=== PATIENT | female | born 1960 | race Caucasian/White ===

== ENCOUNTER 2017-12-03 17:39 | Emergency (ER) | payer OTHER ==
[~2017-12-03] VITALS: Ht 170.2 cm; Wt 62.0 kg
[2017-12-03 17:54] VITALS: BP 118/59; PULSE 74; RESP 18; TEMP 98.4; O2SAT 100
--- NOTE | 2017-12-03 18:09 | PD ---
HPI Chief Complaint: Bite or Sting Time Seen by Provider: 18:01 Travel History International Travel<30 days: No Contact w/Intl Traveler<30days: No Traveled to known affect area: No History of Present Illness HPI Patient comes emergency department the advice of Dr. Lindquist for IV antibiotics. Patient reports she has been taking Motrin, using Benadryl, and hydrocortisone cream with minimal improvement of symptoms. Patient significant other reports that he contacted Dr. Lyons who told him to stop using hydrocortisone and that she will need antibiotics. Patient's significant other reports that he then contacted , who told the patient coming to the ER for IV antibiotics and to call him upon arrival. Patient states that symptoms began yesterday when she went to run her fingers through her hair and felt she got bit by a bug. Patient complaining of burning sensation around left index finger radiates into her left middle finger proximal phalanx. Pain is worse with palpation certain movement. Patient is right-hand dominant. Patient reports tetanus shot is up-to-date PFS Past Medical History Medical History: Denies Significant Hx ?: Not Past Surgical History Hysterectomy: Yes Social History Alcohol Use: No Tobacco Use: No Substance Use: No Allergies-Medications (Allergen,Severity, Reaction): Coded Allergies: Sulfa (Sulfonamide Antibiotics) (Unverified Allergy, Intermediate, Rash and Itching, 12/03/17) penicillin G (Unverified Allergy, Intermediate, Rash and Itching, 12/03/17) Reported Meds & Prescriptions Reported Meds & Active Scripts Active Clindamycin (Clindamycin HCl) 300 Mg Cap 300 Mg PO Q6H 10 Days Review of Systems Except as stated in HPI: all other systems reviewed are Neg Physical Exam Narrative GENERAL: Well-developed, well nourished, in no acute distress, and non-ill appearing. SKIN: Mild erythematous soft tissue swelling noted over the proximal phalanx of the left index finger. Erythematous extending with its distal phalanx. There is no fluctuation, induration, or crepitus. No streaking. Neurovascularly intact. Full range of motion. HEAD: Atraumatic. Normocephalic. EYES: Pupils equal and round. EOMI. No scleral icterus. No injection or drainage. ENT: No nasal bleeding or discharge. Mucous membranes pink and moist. NECK: Trachea midline. Supple. No nuclear rigidity. RESPIRATORY: No accessory muscle use. No respiratory distress. MUSCULOSKELETAL: No obvious deformities. No clubbing. No cyanosis. No edema. Full range of motion. NEUROLOGICAL: Awake and alert. No obvious cranial nerve deficits. Motor grossly within normal limits. Normal speech. PSYCHIATRIC: Appropriate mood and affect; insight and judgment normal. Data Data Last Documented VS Vital Signs Date Time Temp Pulse Resp B/P (MAP) Pulse Ox O2 Delivery O2 Flow Rate FiO2 12/03/17 17:54 98.4 74 18 118/59 (78) 100 Orders Orders Basic Metabolic Panel (Bmp) (12/03/17 18:05) Complete Blood Count With Diff (12/03/17 18:05) Prothrombin Time / Inr (Pt) (12/03/17 18:05) Act Partial Throm Time (Ptt) (12/03/17 18:05) Iv Access Insert/Monitor (12/03/17 18:05) Ecg Monitoring (12/03/17 18:05) Oximetry (12/03/17 18:05) Sodium Chloride 0.9% Flush (Ns Flush) (12/03/17 18:15) Clindamycin 600 Mg/Ns Premix (Cleocin 60 (12/03/17 18:15) Ed Discharge Order (12/03/17 20:11) Labs Laboratory Tests Test 12/03/17 18:15 White Blood Count 4.8 TH/MM3 Red Blood Count 4.65 MIL/MM3 Hemoglobin 13.6 GM/DL Hematocrit 39.4 % Mean Corpuscular Volume 84.6 FL Mean Corpuscular Hemoglobin 29.2 PG Mean Corpuscular Hemoglobin Concent 34.5 % Red Cell Distribution Width 13.0 % Platelet Count 161 TH/MM3 Mean Platelet Volume 8.9 FL Neutrophils (%) (Auto) 62.3 % Lymphocytes (%) (Auto) 25.0 % Monocytes (%) (Auto) 9.4 % Eosinophils (%) (Auto) 2.4 % Basophils (%) (Auto) 0.9 % Neutrophils # (Auto) 3.0 TH/MM3 Lymphocytes # (Auto) 1.2 TH/MM3 Monocytes # (Auto) 0.5 TH/MM3 Eosinophils # (Auto) 0.1 TH/MM3 Basophils # (Auto) 0.0 TH/MM3 CBC Comment DIFF FINAL Differential Comment Prothrombin Time 10.6 SEC Prothromb Time International Ratio 1.0 RATIO Activated Partial Thromboplast Time 26.8 SEC Blood Urea Nitrogen 21 MG/DL Creatinine 0.89 MG/DL Random Glucose 88 MG/DL Calcium Level 9.6 MG/DL Sodium Level 143 MEQ/L Potassium Level 3.6 MEQ/L Chloride Level 105 MEQ/L Carbon Dioxide Level 27.4 MEQ/L Anion Gap 11 MEQ/L Estimat Glomerular Filtration Rate 66 ML/MIN MDM Medical Decision Making Medical Screen Exam Complete: Yes Emergency Medical Condition: Yes Differential Diagnosis Allergic reaction, infected bug bite, cellulitis, abscess, tenosynovitis Narrative Course The patient has cellulitis. There is no evidence of necrotizing fasciitis at this time. There is no evidence of abscess. There is no evidence of local joint space involvement. The patient will be discharged on antibiotics. The patient was given signs and symptoms warnings for worsening infection, such as spreading of redness, increasing pain, and/or swelling, associated heat, or fever and instructed to return immediately if these signs or symptoms worsen. The patient is to follow up with hand surgeon for recheck or return here for recheck if unable to establish outpatient follow up. Sooner if worsens or as needed. The patient agrees with plan. Patient in no obvious distress upon re-evaluation. All pertinent laboratory result(s) discussed with patient/family. Patient was evaluated by hand surgeon at bedside. Patient was asked if they wanted to speak to my attending, which the patient did not wish to do at this time. Any questions/concerns in reference to patient diagnosis/condition discussed and clarified prior to patient's discharge. Reinforced sheer importance of close follow up with hand surgeon. Instructed patient to return to ED immediately, if symptoms return/ worsen. Patient showed understanding of above instructions. Further instructions and recommendations were detailed in discharge paperwork. Patient ambulated without difficulty out of ED at discharge. Physician Communication Physician Communication [address] Ralph, who came to the patient at bedside, recommends p.o. antibiotics and outpatient follow-up with him. Diagnosis Primary Impression: Cellulitis of finger of left hand Referrals: Brodie Lindquist MD Patient Instructions: Cellulitis (ED), General Instructions Additional Instructions: Follow-up with Dr. Lindquist next week for reevaluation. Take all medication as prescribed. Return to the emergency department if symptoms get worse. Med/Other Pt SpecificInfo: Prescription(s) given Scripts Clindamycin (Clindamycin) 300 Mg Cap 300 MG PO Q6H for Infection for 10 Days, #40 CAP 0 Refills Prov: Mick Zepeda MD 12/03/17 Disposition: 01 DISCHARGE HOME Condition: Stable Phoenix Eaton December 03, 2017 18:09
[2017-12-03] MEDS ORDERED: CLINDAMYCIN 600 MG/NS PREMIX 50 ML IV ONE (18:15)
[2017-12-03] MEDS ORDERED: SODIUM CHLORIDE 0.9% FLUSH 10 ML FLUSH IV FLUSH PRN (18:15)
[2017-12-03 18:52] LABS: BASOPHIL % 0.9 % (0.0-2.0); EOSINOPHIL # 0.1 TH/MM3 (0-0.4); EOSINOPHIL % 2.4 % (0.0-4.0); HEMATOCRIT 39.4 % (35.0-46.0); HEMOGLOBIN 13.6 GM/DL (11.6-15.3); LYMPHOCYTE # 1.2 TH/MM3 (1.0-4.8); MEAN CELL VOLUME 84.6 FL (80.0-100.0); MEAN CORPUSCULAR HEMOGLOBIN 29.2 PG (27.0-34.0); MEAN CORPUSCULAR HGB CONC 34.5 % (32.0-36.0); MEAN PLATELET VOLUME 8.9 FL (7.0-11.0); MONO % 9.4 % (0.0-8.0); MONOCYTE # 0.5 TH/MM3 (0-0.9); NEUT % 62.3 % (16.0-70.0); PLATELET COUNT 161 TH/MM3 (150-450); RED BLOOD COUNT 4.65 MIL/MM3 (4.00-5.30); WHITE BLOOD COUNT 4.8 TH/MM3 (4.0-11.0)
[2017-12-03 19:00] LABS: PROTHROMBIN TIME - PATIENT 10.6 SEC (9.8-11.6)
[2017-12-03 19:09] LABS: BICARBONATE 27.4 MEQ/L (21.0-32.0); CALCIUM 9.6 MG/DL (8.5-10.1); CREATININE 0.89 MG/DL (0.50-1.00)
[2017-12-03] MEDS ORDERED: CLIN300C5 PO (20:06)
[2017-12-04] MEDS ORDERED: CLIN300C5 PO (13:42)
== END 2017-12-03 20:37 | disposition home or self-care (01) ==
LOC: NEPE 17:39
DX: L03.012 Cellulitis of left finger (principal)
CPT/HCPCS: 80048; 85025; 85610; 85730; 96365; 96366

== ENCOUNTER 2017-12-04 13:24 | Observation (INO) | payer OTHER ==
[~2017-12-04] VITALS: Ht 170.2 cm; Wt 64.7 kg
[~2017-12-04 13:24] MED LIST: CLIN300C5 PO
[2017-12-04 13:26] VITALS: BP 131/60; PULSE 80; RESP 16; TEMP 98.2; O2SAT 100
[2017-12-04] MEDS ORDERED: CLIN300C5 PO (13:42)
[2017-12-04] MEDS ORDERED: diphenhydrAMINE HCL 50 MG/ML VIAL IV PUSH ONE (14:00)
[2017-12-04] MEDS ORDERED: VANCOMYCIN INJ 950 MG in SODIUM CHLOR 0.9% 250 ML INJ 250 ML IV SCH (14:00)
--- NOTE | 2017-12-04 14:35 | PD ---
HPI Chief Complaint: Bite or Sting Time Seen by Provider: 13:56 Travel History International Travel<30 days: No Contact w/Intl Traveler<30days: No Traveled to known affect area: No History of Present Illness HPI 57yo F presents to the ED for R hand pain and swelling over the 2nd digit due to a possible bite or sting. Pt reports the sensation of being stung one day prior, while swatting something out of her hair. She went to the ED yesterday, and was seen by Dr. Lyons who discharged her with a prescription of Clindamycin. Upon discharge, she was instructed to return to the ED if the swelling or pain worsened, or if she started to develop systemic symptoms. This morning, she noted that her pain increased from a 6 to an 8, and the erythema started to extend into her 3rd digit and over the dorsum and volar surfaces. Pt was instructed by Dr. Alejandre to report to the ED for admission to the hospitalist, ID consultation and IV antibiotics. She has taken three doses of her clindamycin, and one Benadryl 25mg since being discharged. Pt denies any fevers, arthralgias, myalgias, nausea, vomiting, SOB or chest pain. PFSH Past Medical History Medical History: Denies Significant Hx Tetanus Vaccination: < 5 Years Influenza Vaccination: Yes ?: Not Past Surgical History Hysterectomy: Yes Social History Alcohol Use: No Tobacco Use: No Substance Use: No Allergies-Medications (Allergen,Severity, Reaction): Coded Allergies: Sulfa (Sulfonamide Antibiotics) (Unverified Allergy, Intermediate, Rash and Itching, 12/04/17) penicillin G (Unverified Allergy, Intermediate, Rash and Itching, 12/04/17) Reported Meds & Prescriptions Reported Meds & Active Scripts Active Physical Exam Narrative GENERAL: well developed and well nourished female in no acute distress. Alert and oriented x3. SKIN: Warm and dry. HEAD: Atraumatic. Normocephalic. EYES: Pupils equal and round. No scleral icterus. No injection or drainage. ENT: No nasal bleeding or discharge. Mucous membranes pink and moist. NECK: Trachea midline. No JVD. CARDIOVASCULAR: Regular rate and rhythm. RESPIRATORY: No accessory muscle use. Clear to auscultation. Breath sounds equal bilaterally. GASTROINTESTINAL: Abdomen soft, non-tender, nondistended. Hepatic and splenic margins not palpable. MUSCULOSKELETAL: Extremities without clubbing, cyanosis, or edema. No obvious deformities. R hand has obvious edema and erythema over the second digit, extending to the dorsum and volar surfaces. Third digit has erythema and edema extending to the PIP on the dorsal surface. Moderate tenderness to touch with limited ROM. Radial pulses palpable bilaterally. NEUROLOGICAL: Awake and alert. No obvious cranial nerve deficits. Motor grossly within normal limits. Five out of 5 muscle strength in the arms and legs. Normal speech. PSYCHIATRIC: Appropriate mood and affect; insight and judgment normal. Data Data Last Documented VS Orders Orders Complete Blood Count With Diff (12/04/17 13:56) Blood Culture (12/04/17 13:56) Vancomycin Inj (Vancomycin Inj) (12/04/17 14:00) Diphenhydramine Inj (Benadryl Inj) (12/04/17 14:00) Vancomycin Inj (Vancomycin Inj) (12/04/17 15:00) Vital Signs (Adult) Q4H (12/04/17 15:21) Activity Oob Ad Sinai (12/04/17 15:21) Bedside Glucose NATHANAEL.CSUGAR (12/04/17 15:21) Diet Heart Healthy (12/04/17 Dinner) Acetaminophen (Tylenol) (12/04/17 15:30) Basic Metabolic Panel (Bmp) (12/05/17 06:00) Complete Blood Count With Diff (12/05/17 06:00) Resp Oxygen Primitivo C Titrat 1-4 L (12/04/17 15:21) Case Management Consult (12/04/17 15:21) Enoxaparin Inj (Lovenox Inj) (12/04/17 16:00) Heparin Inj (Heparin Inj) (12/04/17 15:30) Scd Bilateral/Knee High NATHANAEL.BID (12/04/17 15:21) Acetamin-Hydrocod 325-5 Mg (White 5-325 (12/04/17 15:30) Acetamin-Hydrocod 325-7.5 Mg (White 7.5 (12/04/17 15:30) Naloxone Inj (Narcan Inj) (12/04/17 15:30) Docusate Sodium-Senna (Nohelia-Colace) (12/04/17 21:00) Magnesium Hydroxide Liq (Milk Of Magnesi (12/04/17 15:30) Sennosides (Senokot) (12/04/17 15:30) Place In Observation (12/04/17 15:21) Consult Infectious Disease (12/04/17 ) Consult Hand Surgery (12/04/17 ) Ondansetron Odt (Zofran Odt) (12/04/17 15:30) Ketorolac Inj (Toradol Inj) (12/04/17 15:30) Morphine Inj (Morphine Inj) (12/04/17 15:30) Admit Order (Ed Use Only) (12/04/17 15:26) Labs Laboratory Tests Test 12/04/17 14:10 White Blood Count 4.4 TH/MM3 Red Blood Count 4.20 MIL/MM3 Hemoglobin 12.4 GM/DL Hematocrit 35.4 % Mean Corpuscular Volume 84.3 FL Mean Corpuscular Hemoglobin 29.5 PG Mean Corpuscular Hemoglobin Concent 35.0 % Red Cell Distribution Width 13.0 % Platelet Count 158 TH/MM3 Mean Platelet Volume 9.2 FL Neutrophils (%) (Auto) 57.4 % Lymphocytes (%) (Auto) 27.9 % Monocytes (%) (Auto) 9.6 % Eosinophils (%) (Auto) 4.2 % Basophils (%) (Auto) 0.9 % Neutrophils # (Auto) 2.5 TH/MM3 Lymphocytes # (Auto) 1.2 TH/MM3 Monocytes # (Auto) 0.4 TH/MM3 Eosinophils # (Auto) 0.2 TH/MM3 Basophils # (Auto) 0.0 TH/MM3 CBC Comment DIFF FINAL Differential Comment MDM Medical Decision Making Medical Screen Exam Complete: Yes Emergency Medical Condition: Yes Differential Diagnosis Cellulitis versus histamine release secondary to hymenoptera sting versus tenosynovitis Narrative Course 57-year-old female presents here for the second day in a row. Patient was bitten by an unknown insect. Patient has what appears to be cellulitis of her left hand that is worsening since yesterday. Given this, patient will be admitted. She has been started on vancomycin. Dr. paez, on-call hand surgeon the previous day, is coming to see the patient. She will be admitted for IV antibiotics for failed outpatient antibiotic treatment. Diagnosis Primary Impression: Cellulitis of hand Additional Impression: Failed outpatient antibiotics Admitting Information Admitting Physician Requests: Admit Scripts Doxycycline Hyclate (Doxycycline Hyclate) 100 Mg Cap 100 MG PO BID for Infection, #28 CAP 0 Refills use sunscreen and avoid sun exposure while taking doxycicline Prov: Jessie Barros MD 12/06/17 Manuel Suh MD Dec 04, 2017 14:35
[2017-12-04 14:41] LABS: AUTOMATED NEUTROPHIL # 2.5 TH/MM3 (1.8-7.7); BASOPHIL % 0.9 % (0.0-2.0); EOSINOPHIL # 0.2 TH/MM3 (0-0.4); EOSINOPHIL % 4.2 % (0.0-4.0); HEMATOCRIT 35.4 % (35.0-46.0); HEMOGLOBIN 12.4 GM/DL (11.6-15.3); LYMPH % 27.9 % (9.0-44.0); LYMPHOCYTE # 1.2 TH/MM3 (1.0-4.8); MEAN CELL VOLUME 84.3 FL (80.0-100.0); MEAN CORPUSCULAR HEMOGLOBIN 29.5 PG (27.0-34.0); MEAN PLATELET VOLUME 9.2 FL (7.0-11.0); MONO % 9.6 % (0.0-8.0); MONOCYTE # 0.4 TH/MM3 (0-0.9); NEUT % 57.4 % (16.0-70.0); PLATELET COUNT 158 TH/MM3 (150-450); WHITE BLOOD COUNT 4.4 TH/MM3 (4.0-11.0)
[2017-12-04] MEDS ORDERED: KETOROLAC TROMETHAMINE 30 MG/ML (IVP) VIAL IV PUSH ONE (15:30)
[2017-12-04] MEDS ORDERED: ONDANSETRON ODT 4 MG TAB PO PRN (15:30)
[2017-12-04] MEDS ORDERED: MORPHINE SULFATE 4 MG/ML INJ IV PUSH PRN (15:30)
[2017-12-04] MEDS ORDERED: SENNOSIDES 8.6 MG TAB PO PRN (15:30)
[2017-12-04] MEDS ORDERED: NALOXONE HCL 0.4 MG/ML AMP IV PUSH PRN (15:30)
[2017-12-04] MEDS ORDERED: ACETAMINOPHEN/HYDROcodone 325 MG/5 MG TAB PO PRN (15:30)
[2017-12-04] MEDS ORDERED: ACETAMINOPHEN 325 MG TAB PO PRN (15:30)
[2017-12-04] MEDS: HEPARIN SODIUM - SQ 10,000 UNITS/ML VIAL SQ SCH ×3 (15:30→20:45)
[2017-12-04] MEDS ORDERED: MAGNESIUM HYDROXIDE SUSP 30 ML CUP PO PRN (15:30)
[2017-12-04] MEDS: VANCOMYCIN 1,000 MG/NS 250 ML IV SCH ×2 (15:35)
[2017-12-04] MEDS ORDERED: ENOXAPARIN SODIUM 40 MG/0.4 ML SYRINGE SQ SCH (16:00)
[2017-12-04] MEDS ORDERED: hydrOXYzine HCL 50 MG TAB PO ONE ×2 (17:00→17:15)
[2017-12-04 17:36] VITALS: BP 119/68; PULSE 61; RESP 14; O2SAT 100
[2017-12-04 18:00] VITALS: BP 131/60; PULSE 60; RESP 19; TEMP 97.6; O2SAT 100
[2017-12-04 20:00] VITALS: BP 109/57; PULSE 56; RESP 18; TEMP 97.7; O2SAT 99
[2017-12-04] MEDS: DOCUSATE SODIUM 50 MG/SENNA 8.6 MG TAB PO SCH (20:45)
--- NOTE | 2017-12-04 20:48 | MB ---
cc: Brodie Lindquist MD, Srikanth MD DATE: 12/04/2017 REASON FOR CONSULTATION: Left hand infection. HISTORY OF PRESENT ILLNESS: The patient is a 57-year-old right-hand dominant female who presented with complaints of worsening symptoms involving the left index finger. The patient was seen by me in the ER last night for similar complaints. The patient initially presented with a questionable bug bite to the left index finger. She states she was swatting something out of her hair and saw a stinger over the index finger region, following which she noticed swelling and redness around the index finger. She also complains of associated itching. Denies any drainage. Also complains of intermittent numbness of the fingertip. Denied any fever or chills. She was given 1 dose of IV clindamycin and was discharged home on p.o. mouth clindamycin. The patient presented today with worsening pain and swelling involving the left hand and index finger. She also complains of numbness over the fingertip. PAST MEDICAL AND SURGICAL HISTORY: Noted nonsignificant. PHYSICAL EXAMINATION: Examination of the left hand reveals swelling of the index finger along the whole length with erythema over the proximal phalanx region and distal palmar crease along the volar aspect and on the dorsal aspect of the proximal phalanx region. She has diffuse tenderness along the flexor tendon sheath. Swelling around the PIP joint also noted. She has a small blister on the dorsal aspect of the proximal phalanx region of the index finger. Questionable bite garland noted on the dorsal aspect of the proximal phalanx region of the index finger. She has intact capillary refill. Range of motion of the index finger is limited and painful. She has no palpable proximal lymph nodes. No tenderness noted along the flexor sheath of the other fingers. LABORATORY DATA: She had lab work done. She has a white count of 4.4 and neutrophil shift of 57%. ASSESSMENT: A 57-year-old female with a bug bite to the left index finger with reactive flexor tenosynovitis. PLAN: Change the antibiotics to vancomycin based, as she was not responding to clindamycin. We will get ultrasound of the left hand and index finger. We will obtain infectious disease consult. The patient has been advised regarding limb elevation and finger range of motion exercises. Over the weekend my partner, Dr. Chelsie Bonilla, will be covering the patient. MD KENNETH Palomino , 07:39 PM , 08:48 PM
[2017-12-04] MEDS: ACETAMINOPHEN/HYDROcodone 325 MG/7.5 MG TAB PO PRN (20:49)
--- NOTE | 2017-12-04 21:12 | RADRPT ---
EXAM DATE: 12/04/2017 9:03 PM EDT AGE/SEX: 57 years / Female INDICATIONS: Left hand redness and swelling. CLINICAL DATA: This is the patient's initial encounter. Patient reports that signs and symptoms have been present for 3 days and indicates a pain score of 8/10. Location: Laterality: MEDICAL/SURGICAL HISTORY: . Left hand swelling and redness. Hysterectomy. COMPARISON: No prior [facility] exams available for comparison. FINDINGS: A targeted ultrasound examination performed in the area of redness and swelling. This demonstrates no focal fluid collection or mass. CONCLUSION: 1. Negative ultrasound study with no focal abnormality identified. Electronically signed by: Nirmal Leavitt MD 12/04/2017 9:11 PM EDT
[2017-12-05] VITALS: BP 92/68; PULSE 52; RESP 18; TEMP 97.6; O2SAT 98
[2017-12-05] MEDS: VANCOMYCIN 1,000 MG/NS 250 ML IV SCH ×2 (02:06)
[2017-12-05 03:25] VITALS: O2SAT 98
[2017-12-05 04:52] LABS: AUTOMATED NEUTROPHIL # 1.9 TH/MM3 (1.8-7.7); BASOPHIL % 0.8 % (0.0-2.0); EOSINOPHIL # 0.2 TH/MM3 (0-0.4); EOSINOPHIL % 5.2 % (0.0-4.0); HEMATOCRIT 36.1 % (35.0-46.0); HEMOGLOBIN 12.4 GM/DL (11.6-15.3); LYMPH % 36.4 % (9.0-44.0); LYMPHOCYTE # 1.4 TH/MM3 (1.0-4.8); MEAN CELL VOLUME 84.8 FL (80.0-100.0); MEAN CORPUSCULAR HEMOGLOBIN 29.1 PG (27.0-34.0); MEAN CORPUSCULAR HGB CONC 34.3 % (32.0-36.0); MEAN PLATELET VOLUME 9.3 FL (7.0-11.0); MONO % 9.2 % (0.0-8.0); MONOCYTE # 0.4 TH/MM3 (0-0.9); NEUT % 48.4 % (16.0-70.0); PLATELET COUNT 137 TH/MM3 (150-450); RED BLOOD COUNT 4.26 MIL/MM3 (4.00-5.30); RED CELL DISTRIBUTION WIDTH 13.1 % (11.6-17.2); WHITE BLOOD COUNT 3.8 TH/MM3 (4.0-11.0)
[2017-12-05 05:31] LABS: BICARBONATE 26.5 MEQ/L (21.0-32.0); CALCIUM 8.7 MG/DL (8.5-10.1); CREATININE 0.84 MG/DL (0.50-1.00)
[2017-12-05] MEDS: HEPARIN SODIUM - SQ 10,000 UNITS/ML VIAL SQ SCH ×3 (06:07→21:30)
[2017-12-05] MEDS: ACETAMINOPHEN/HYDROcodone 325 MG/7.5 MG TAB PO PRN ×5 (06:09→21:32)
[2017-12-05 08:00] VITALS: BP 105/53; PULSE 58; RESP 18; TEMP 98; O2SAT 96
[2017-12-05] MEDS: DOCUSATE SODIUM 50 MG/SENNA 8.6 MG TAB PO SCH ×2 (08:16→21:00)
[2017-12-05] MEDS: diphenhydrAMINE HCL 25 MG CAP PO PRN ×3 (09:34→21:30)
--- NOTE | 2017-12-05 11:23 | HHI.HP ---
HPI Service [facility] Primary Care Physician Esther Puga MD Admission Diagnosis Left hand infection, failed outpatient abx. Diagnoses: Chief Complaint: Left index redness swelling and tenderness Travel History International Travel<30 Days: No Contact w/Intl Traveler <30 Da: No Traveled to Known Affected Are: No History of Present Illness 57 years old female presented to the ED complaining with no significant past medical history presented to the ED complaining of left index finger swelling and redness and tenderness. Patient visited the ER last night for the same complaint and she was prescribed clindamycin, patient has a history of possible bug bite on that left index but she did not see the insects after that patient started noticing swelling and redness with tingling and tenderness and itching. There was no drainage no fever or chills, patient was given 1 dose of IV clindamycin in ED and she was discharged on p.o. however patient reported worsening symptoms despite the clindamycin and she reported again to the ED. Review of Systems All systems reviewed and was positive for what is mentioned in history of present illness otherwise negative Past Family Social History Past Medical History Patient denied significant past medical history Past Surgical History Hysterectomy Allergies: Coded Allergies: Sulfa (Sulfonamide Antibiotics) (Unverified Allergy, Intermediate, Rash and Itching, 12/04/17) penicillin G (Unverified Allergy, Intermediate, Rash and Itching, 12/04/17) Family History Review with the patient,not aware of significant medical history related to her problem runs in the family Social History Denied tobacco alcohol or illicit drug abuse Physical Exam Vital Signs Vital Signs Date Time Temp Pulse Resp B/P (MAP) Pulse Ox O2 Delivery O2 Flow Rate FiO2 12/05/17 08:00 98.0 58 18 105/53 (70) 96 12/05/17 03:25 98 12/05/17 00:00 97.6 52 18 92/68 (76) 98 12/04/17 20:00 97.7 56 18 109/57 (74) 99 12/04/17 18:09 18 12/04/17 18:00 97.6 60 19 131/60 (83) 100 12/04/17 17:48 12/04/17 17:36 61 14 119/68 (85) 100 Room Air 12/04/17 13:26 98.2 80 16 131/60 (83) 100 Physical Exam GENERAL: This is a well-nourished, well-developed patient, in no apparent distress. SKIN: Swelling redness around the base of the left index HEAD: Atraumatic. Normocephalic. EYES: Pupils equal round and reactive. Extraocular motions intact. No scleral icterus. ENT: Nose without bleeding, or drainage, Airway patent. NECK: Trachea midline. Supple CARDIOVASCULAR: Regular rate and rhythm without murmurs, gallops, or rubs. RESPIRATORY: Fair air entry bilaterally. No wheezes, rales, or rhonchi. GASTROINTESTINAL: Abdomen soft, non-tender, nondistended. Positive bowel sounds MUSCULOSKELETAL: Extremities without clubbing, cyanosis, or edema. Pedal pulses appreciated NEUROLOGICAL: Awake and alert. Moves all extremity. Normal speech.no focal neurological deficit Laboratory Laboratory Tests Test 12/04/17 14:10 12/05/17 03:50 White Blood Count 4.4 3.8 Red Blood Count 4.20 4.26 Hemoglobin 12.4 12.4 Hematocrit 35.4 36.1 Mean Corpuscular Volume 84.3 84.8 Mean Corpuscular Hemoglobin 29.5 29.1 Mean Corpuscular Hemoglobin Concent 35.0 34.3 Red Cell Distribution Width 13.0 13.1 Platelet Count 158 137 Mean Platelet Volume 9.2 9.3 Neutrophils (%) (Auto) 57.4 48.4 Lymphocytes (%) (Auto) 27.9 36.4 Monocytes (%) (Auto) 9.6 9.2 Eosinophils (%) (Auto) 4.2 5.2 Basophils (%) (Auto) 0.9 0.8 Neutrophils # (Auto) 2.5 1.9 Lymphocytes # (Auto) 1.2 1.4 Monocytes # (Auto) 0.4 0.4 Eosinophils # (Auto) 0.2 0.2 Basophils # (Auto) 0.0 0.0 CBC Comment DIFF FINAL DIFF FINAL Differential Comment Blood Urea Nitrogen 19 Creatinine 0.84 Random Glucose 92 Calcium Level 8.7 Sodium Level 145 Potassium Level 3.9 Chloride Level 112 Carbon Dioxide Level 26.5 Anion Gap 7 Estimat Glomerular Filtration Rate 70 Date/Time Source Procedure Growth Status 12/04/17 14:10 Blood Peripheral Aerobic Blood Culture - Preliminary NO GROWTH IN 1 DAY Resulted 12/04/17 14:10 Blood Peripheral Anaerobic Blood Culture - Preliminary NO GROWTH IN 1 DAY Resulted Result Diagram: 12/05/17 0350 12/05/17 0350 Imaging Last Impressions Upper Extremity Ultrasound 12/04/17 0000 Signed Impressions: CONCLUSION: 1. Negative ultrasound study with no focal abnormality identified. Caprini VTE Risk Assessment Caprini VTE Risk Assessment: No/Low Risk (score <= 1) Caprini Risk Assessment Model Point Value = 1 Point Value = 2 Point Value = 3 Point Value = 5 Age 41-60 Minor surgery BMI > 25 kg/m2 Swollen legs Varicose veins or History of unexplained or recurrent spontaneous Oral contraceptives or hormone replacement Sepsis (< 1 month) Serious lung disease, including pneumonia (< 1 month) Abnormal pulmonary function Acute myocardial infarction Congestive heart failure (< 1 month) History of inflammatory bowel disease Medical patient at bed rest Age 61-74 Arthroscopic surgery Major open surgery (> 45 min) Laparoscopic surgery (> 45 min) Malignancy Confined to bed (> 72 hours) Immobilizing plaster cast Central venous access Age >= 75 History of VTE Family history of VTE Factor V Leiden Prothrombin [id number] Lupus anticoagulant Anticardiolipin antibodies Elevated serum homocysteine Heparin-induced thrombocytopenia Other congenital or acquired thrombophilia Stroke (< 1 month) Elective arthroplasty Hip, pelvis, or leg fracture Acute spinal cord injury (< 1 month) Prophylaxis Regimen Total Risk Factor Score Risk Level Prophylaxis Regimen 0-1 Low Early ambulation 2 Moderate Order ONE of the following: *Sequential Compression Device (SCD) *Heparin 5000 units SQ BID 3-4 Higher Order ONE of the following medications: *Heparin 5000 units SQ TID *Enoxaparin/Lovenox 40 mg SQ daily (WT < 150 kg, CrCl > 30 mL/min) *Enoxaparin/Lovenox 30 mg SQ daily (WT < 150 kg, CrCl > 10-29 mL/min) *Enoxaparin/Lovenox 30 mg SQ BID (WT < 150 kg, CrCl > 30 mL/min) AND/OR *Sequential Compression Device (SCD) 5 or more Highest Order ONE of the following medications: *Heparin 5000 units SQ TID (Preferred with Epidurals) *Enoxaparin/Lovenox 40 mg SQ daily (WT < 150 kg, CrCl > 30 mL/min) *Enoxaparin/Lovenox 30 mg SQ daily (WT < 150 kg, CrCl > 10-29 mL/min) *Enoxaparin/Lovenox 30 mg SQ BID (WT < 150 kg, CrCl > 30 mL/min) AND *Sequential Compression Device (SCD) Assessment and Plan Assessment and Plan 57 years old female with a past medical history presented with Left index swelling redness itching and numbness Left index cellulitis rule out abscess/flexor tenosynovitis Patient failed outpatient therapy with clindamycin Admit for observation started on vancomycin Appreciate hand surgery consultation discussed with Dr. Cannon, he recommended ultrasound of the upper extremity and hand with ID consultation Monitor improvement DVT prophylaxis with ambulation Discussed Condition With Patient and Dr. Bette bravo, as well as ED physician Timothy Castillo MD Dec 05, 2017 11:23
--- NOTE | 2017-12-05 11:51 | PD.ORT.PN ---
Subjective Subjective Remarks Patient reports significant improvement in pain, swelling, and erythema since yesterday. Objective Vitals Vital Signs Date Time Temp Pulse Resp B/P (MAP) Pulse Ox O2 Delivery O2 Flow Rate FiO2 12/05/17 08:00 98.0 58 18 105/53 (70) 96 12/05/17 03:25 98 12/05/17 00:00 97.6 52 18 92/68 (76) 98 12/04/17 20:00 97.7 56 18 109/57 (74) 99 12/04/17 18:09 18 12/04/17 18:00 97.6 60 19 131/60 (83) 100 12/04/17 17:48 12/04/17 17:36 61 14 119/68 (85) 100 Room Air 12/04/17 13:26 98.2 80 16 131/60 (83) 100 I/O 12/04/17 12/04/17 12/04/17 12/05/17 12/05/17 12/05/17 07:00 15:00 23:00 07:00 15:00 23:00 Intake Total 250 ml 240 ml Balance 250 ml 240 ml Intake Oral 240 ml IV Total 250 ml # Voids 1 # Bowel Movements 0 Result Diagram: 12/05/17 0350 12/05/17 0350 Objective Remarks Resolving erythema over left hand and index finger, no fluctuance function intact fdp/fds, sitlt radial and ulnar sides, <2 sec capillary refill Assessment & Plan Assessment and Plan 57yF insect bite to left index finger with erythema and swelling failed outpatient oral antibiotics but improving on IV Ab -Ultrasound negative for fluid collection, no indication for surgical intervention at this time. Will continue to follow closely on IV Ab. -Appreciate ID input -Patient educated on range of motion Chelsie Bonilla MD Dec 05, 2017 11:51
[2017-12-05 12:00] VITALS: BP 105/51; PULSE 57; RESP 18; TEMP 97.8; O2SAT 100
--- NOTE | 2017-12-05 13:23 | PD.ID.CON ---
History of Present Illness Service ID Consult Requested By Reason for Consult Evaluation and management of cellulitis possible tenosynovitis of the hand Primary Care Physician Esther Puga MD Diagnoses: History of Present Illness is a 57-year-old female with no significant past medical history who presents to the emergency department complaining of left index finger swelling, redness and tenderness. Patient visited the ER the night before complaining of the same and was prescribed clindamycin. Patient reported a history of possible bug bite on the left index finger but reports did not see any insects. Thereafter the swelling redness tingling numbness and itching worsened. There is no reported history of drainage from the finger site. Patient was admitted to the hospital due to failure to respond to oral antibiotics. No history of fever or chills or night sweats. Denies any history of trauma Possible history of insect bite but not witnessed Infectious diseases consulted for evaluation and management of cellulitis possible tenosynovitis of the left index finger as well as cellulitis of the dorsum of the hand. Review of Systems Constitutional: DENIES: Diaphoretic episodes, Fatigue, Fever, Weight gain, Weight loss, Chills, Dizziness, Change in appetite, Night Sweats Endocrine: DENIES: Abnorml menstrual pattern, Heat/cold intolerance, Polydipsia , Polyuria, Polyphagia Eyes: DENIES: Blurred vision, Diplopia, Eye inflammation, Eye pain, Vision loss , Photosensitivity, Double Vision Ears, nose, mouth, throat: DENIES: Tinnitus, Hearing loss, Vertigo, Nasal discharge, Oral lesions, Throat pain, Hoarseness, Ear Pain, Running Nose, Epistaxis, Sinus Pain, Toothache, Odynophagia Respiratory: DENIES: Apneas, Cough, Snoring, Wheezing, Hemoptysis, Sputum production, Shortness of breath Cardiovascular: DENIES: Chest pain, Palpitations, Syncope, Dyspnea on Exertion , PND, Lower Extremity Edema, Orthopnea, Claudication Gastrointestinal: DENIES: Abdominal pain, Black stools, Bloody stools, Constipation, Diarrhea, Nausea, Vomiting, Difficulty Swallowing, Anorexia Genitourinary: DENIES: Abnormal vaginal bleeding, Dysmenorrhea, Dyspareunia, Sexual dysfunction, Urinary frequency, Urinary incontinence, Urgency, Hematuria , Dysuria, Nocturia, Vaginal discharge Musculoskeletal: COMPLAINS OF: Joint pain, Joint Swelling, DENIES: Muscle aches , Stiffness, Back pain, Neck pain Integumentary: COMPLAINS OF: Abnormal pigmentation, DENIES: Pruritus, Rash, Nail changes, Breast masses, Breast skin changes, Nipple discharge Hematologic/lymphatic: DENIES: Bruising, Lymphadenopathy Immunologic/allergic: DENIES: Eczema, Urticaria Neurologic: DENIES: Abnormal gait, Headache, Localized weakness, Paresthesias, Seizures, Speech Problems, Tremor, Poor Balance Psychiatric: DENIES: Anxiety, Confusion, Mood changes, Depression, Hallucinations, Agitation, Suicidal Ideation, Homicidal Ideation, Delusions Except as stated in HPI: all other systems reviewed are Neg Past Family Social History Allergies: Coded Allergies: Sulfa (Sulfonamide Antibiotics) (Unverified Allergy, Intermediate, Rash and Itching, 12/04/17) penicillin G (Unverified Allergy, Intermediate, Rash and Itching, 12/04/17) Past Medical History None per patient Past Surgical History None per patient Reported Medications Reported Meds & Active Scripts Active Reported Clindamycin (Clindamycin HCl) 300 Mg Cap 300 Mg PO Q6H Active Ordered Medications Current Medications Medications (Trade) Dose Ordered Sig/Alida Route Start Time Stop Time Status Last Admin Vancomycin HCl 1000 mg/Sodium Chloride 250 ml @ 250 mls/hr Q12H IV 12/04/17 15:00 12/05/17 02:06 (Tylenol) 650 mg Q4H PRN PO 12/04/17 15:30 (Zofran Odt) 4 mg Q6H PRN PO 12/04/17 15:30 12/04/17 17:34 (Heparin Inj) 5,000 units Q8HR SQ 12/04/17 15:30 Future hold 12/05/17 06:07 ([place] 5-325 Mg) 1 tab Q4H PRN PO 12/04/17 15:30 ([place] 7.5-325 Mg) 1 tab Q4H PRN PO 12/04/17 15:30 12/05/17 12:50 (Morphine Inj) 4 mg Q3H PRN IV PUSH 12/04/17 15:30 12/04/17 17:34 (Narcan Inj) 0.4 mg UNSCH PRN IV PUSH 12/04/17 15:30 (Nohelia-Colace) 1 tab BID PO 12/04/17 21:00 12/04/17 20:45 (Milk Of Magnesia Liq) 30 ml Q12H PRN PO 12/04/17 15:30 (Senokot) 17.2 mg Q12H PRN PO 12/04/17 15:30 (Benadryl) 25 mg Q6H PRN PO 12/05/17 08:30 12/05/17 09:34 Family History Reviewed and noncontributory to current infectious disease problems. 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 Physical Exam Vital Signs Vital Signs Date Time Temp Pulse Resp B/P (MAP) Pulse Ox O2 Delivery O2 Flow Rate FiO2 12/05/17 08:00 98.0 58 18 105/53 (70) 96 12/05/17 03:25 98 12/05/17 00:00 97.6 52 18 92/68 (76) 98 12/04/17 20:00 97.7 56 18 109/57 (74) 99 12/04/17 18:09 18 12/04/17 18:00 97.6 60 19 131/60 (83) 100 12/04/17 17:48 12/04/17 17:36 61 14 119/68 (85) 100 Room Air 12/04/17 13:26 98.2 80 16 131/60 (83) 100 Physical Exam GENERAL: This is a well-nourished, well-developed patient, in no apparent distress. SKIN: No rashes, ecchymoses or lesions. Cool and dry. HEAD: Atraumatic. Normocephalic. No temporal or scalp tenderness. EYES: Pupils equal round and reactive. Extraocular motions intact. No scleral icterus. No injection or drainage. ENT: Nose without bleeding, purulent drainage or septal hematoma. Throat without erythema, tonsillar hypertrophy or exudate. Uvula midline. Airway patent. NECK: Trachea midline. Supple, nontender, no meningeal signs. CARDIOVASCULAR: Heart sounds audible. RESPIRATORY: Clear to auscultation. Breath sounds equal bilaterally. No wheezes , rales, or rhonchi. GASTROINTESTINAL: Abdomen soft, non-tender, nondistended. No hepato-splenomegaly , or palpable masses. No guarding. MUSCULOSKELETAL: Left index finger with significant swelling tenderness erythema. Unable to flex the finger due to pain and swelling. Erythema extends slightly to the dorsum of the hand as well as the palmar aspect. NEUROLOGICAL: Awake and alert. Nonfocal. Normal speech Psych cooperative IV line sites with no evidence of infection. Laboratory Laboratory Tests Test 12/04/17 14:10 12/05/17 03:50 White Blood Count 4.4 3.8 Red Blood Count 4.20 4.26 Hemoglobin 12.4 12.4 Hematocrit 35.4 36.1 Mean Corpuscular Volume 84.3 84.8 Mean Corpuscular Hemoglobin 29.5 29.1 Mean Corpuscular Hemoglobin Concent 35.0 34.3 Red Cell Distribution Width 13.0 13.1 Platelet Count 158 137 Mean Platelet Volume 9.2 9.3 Neutrophils (%) (Auto) 57.4 48.4 Lymphocytes (%) (Auto) 27.9 36.4 Monocytes (%) (Auto) 9.6 9.2 Eosinophils (%) (Auto) 4.2 5.2 Basophils (%) (Auto) 0.9 0.8 Neutrophils # (Auto) 2.5 1.9 Lymphocytes # (Auto) 1.2 1.4 Monocytes # (Auto) 0.4 0.4 Eosinophils # (Auto) 0.2 0.2 Basophils # (Auto) 0.0 0.0 CBC Comment DIFF FINAL DIFF FINAL Differential Comment Blood Urea Nitrogen 19 Creatinine 0.84 Random Glucose 92 Calcium Level 8.7 Sodium Level 145 Potassium Level 3.9 Chloride Level 112 Carbon Dioxide Level 26.5 Anion Gap 7 Estimat Glomerular Filtration Rate 70 Date/Time Source Procedure Growth Status 12/04/17 14:10 Blood Peripheral Aerobic Blood Culture - Preliminary NO GROWTH IN 1 DAY Resulted 12/04/17 14:10 Blood Peripheral Anaerobic Blood Culture - Preliminary NO GROWTH IN 1 DAY Resulted Result Diagram: 12/05/17 0350 12/05/17 0350 Imaging Last Impressions Upper Extremity Ultrasound 12/04/17 0000 Signed Impressions: CONCLUSION: 1. Negative ultrasound study with no focal abnormality identified. Assessment and Plan Assessment and Plan Left index finger Tenosynovitis Left hand cellulitis Leucopenia Thrombocytopenia Recommendations: Continue vancomycin IV target trough 10-15 elevate hand Benadryl Follow clinically check CRP Check LFTs Check CBC with diff. Case discussed with Dr. Bette kerr patient. Lakisha Driscoll MD Dec 05, 2017 13:23
[2017-12-05] MEDS ORDERED: Vancomycin Consult Pharmacy 1 EA OTHER SCH (13:45)
[2017-12-05 14:49] LABS: ALBUMIN 3.6 GM/DL (3.4-5.0); ALT (GPT) 19 U/L (10-53); AST (GOT) 16 U/L (15-37); C-REACTIVE PROTEIN LESS THAN 0.29 MG/DL (0.00-0.30); DIRECT BILIRUBIN ADULT 0.1 MG/DL (0.0-0.2)
[2017-12-05 14:50] LABS: ALKALINE PHOSPHATASE 54 U/L (45-117); INDIRECT BILIRUBIN 0.2 MG/DL (0.0-0.8); TOTAL BILIRUBIN ADULT 0.3 MG/DL (0.2-1.0); TOTAL PROTEIN 6.1 GM/DL (6.4-8.2)
[2017-12-05] MEDS: VANCOMYCIN 500 MG/NS 100 ML IV SCH ×2 (15:22)
[2017-12-05 16:00] VITALS: BP 110/58; PULSE 52; RESP 17; TEMP 97.1; O2SAT 100
[2017-12-05 20:00] VITALS: BP 112/56; PULSE 60; RESP 16; TEMP 97.9; O2SAT 98
[2017-12-06] VITALS: BP 96/50; PULSE 54; RESP 16; TEMP 97.7; O2SAT 97
[2017-12-06] MEDS ORDERED: PHARMACY ORDERED LAB ONE (02:45)
[2017-12-06] MEDS: VANCOMYCIN 500 MG/NS 100 ML IV SCH ×2 (03:03)
[2017-12-06] MEDS: HEPARIN SODIUM - SQ 10,000 UNITS/ML VIAL SQ SCH ×2 (05:56→13:45)
[2017-12-06 08:00] VITALS: BP 98/53; PULSE 56; RESP 16; TEMP 98.2; O2SAT 99
[2017-12-06] MEDS: DOCUSATE SODIUM 50 MG/SENNA 8.6 MG TAB PO SCH (09:00)
--- NOTE | 2017-12-06 09:00 | HHI.PR ---
Subjective Remarks Erythema and edema of her hand improved significantly. No fever chills overnight. Able to use hand without any problems. Pain is controlled by medications since she does not need narcotic. Improved and wants to go home. Will discuss with infectious disease specialist and hand surgeon. Objective Vitals Vital Signs Date Time Temp Pulse Resp B/P (MAP) Pulse Ox O2 Delivery O2 Flow Rate FiO2 12/06/17 08:00 98.2 56 16 98/53 (68) 99 12/06/17 00:00 97.7 54 16 96/50 (65) 97 12/05/17 20:00 97.9 60 16 112/56 (74) 98 12/05/17 16:00 97.1 52 17 110/58 (75) 100 12/05/17 12:00 97.8 57 18 105/51 (69) 100 I/O 12/05/17 12/05/17 12/05/17 12/06/17 12/06/17 12/06/17 07:00 15:00 23:00 07:00 15:00 23:00 Intake Total 240 ml 480 ml 250 ml 100 ml Balance 240 ml 480 ml 250 ml 100 ml Intake Oral 240 ml 480 ml IV Total 250 ml 100 ml # Voids 1 2 # Bowel Movements 0 1 Result Diagram: 12/05/17 0350 12/05/17 0350 Imaging Last Impressions Upper Extremity Ultrasound 12/04/17 0000 Signed Impressions: CONCLUSION: 1. Negative ultrasound study with no focal abnormality identified. Objective Remarks GENERAL: This is a very pleasant 57-year-old female, well-nourished, well- developed patient, in no apparent distress. SKIN: Swelling redness around the base of the left index improved significantly. Normal range of motion. CARDIOVASCULAR: Regular rate and rhythm without murmurs, gallops, or rubs. RESPIRATORY: Fair air entry bilaterally. No wheezes, rales, or rhonchi. GASTROINTESTINAL: Abdomen soft, non-tender, nondistended. Positive bowel sounds MUSCULOSKELETAL: Normal range of motion. Extremities without clubbing, cyanosis , or edema. Pedal pulses appreciated NEUROLOGICAL: Awake and alert. Moves all extremity. Normal speech.no focal neurological deficit A/P Assessment and Plan 57yF presented with insect bite to left index finger with erythema and swelling failed outpatient oral antibiotics, started on IV Abx Left index cellulitis rule out abscess/flexor tenosynovitis Patient failed outpatient therapy with clindamycin On vancomycin Ultrasound negative for fluid collection. Seen by Dr Bonilla hand surgeon , appreciate recommendations, no indication for surgical intervention. The patient is improving. Appreciate ID input Monitor clinically for improvement Patient improved significantly. Spoke with infectious disease specialist Dr Driscoll. Recommends doxycycline 100 mg p.o. twice daily for total of 14 days. The patient is instructed to use sunscreen or and avoid sun exposure while taking doxycycline. Patient is also cleared by hand specialist to follow-up as outpatient with PCP, and surgeon and infectious disease Dr. Grove as outpatient.. DVT prophylaxis with ambulation Discussed Condition With Patient, nurse Discharge plan: Discharge home Jessie Barros MD Dec 06, 2017 09:00
[2017-12-06 12:00] VITALS: BP 114/53; PULSE 55; RESP 16; TEMP 97.7; O2SAT 98
[2017-12-06] MEDS ORDERED: VANCOMYCIN 1,000 MG/NS 250 ML IV SCH ×2 (15:00)
[2017-12-06] MEDS ORDERED: DOXY100C PO (16:51)
--- NOTE | 2017-12-06 16:51 | HHI.DS ---
Discharge Summary Admission Date Dec 04, 2017 at 15:29 Discharge Date: Dec 06, 2017 Admitting Diagnosis Left hand infection, failed outpatient abx. (1) Cellulitis of hand ICD Code: L03.119 - Cellulitis of unspecified part of limb Procedures No procedures Brief History - From Admission 57 years old female presented to the ED complaining with no significant past medical history presented to the ED complaining of left index finger swelling and redness and tenderness. Patient visited the ER last night for the same complaint and she was prescribed clindamycin, patient has a history of possible bug bite on that left index but she did not see the insects after that patient started noticing swelling and redness with tingling and tenderness and itching. There was no drainage no fever or chills, patient was given 1 dose of IV clindamycin in ED and she was discharged on p.o. however patient reported worsening symptoms despite the clindamycin and she reported again to the ED. CBC/BMP: 12/05/17 0350 12/05/17 0350 Significant Findings Laboratory Tests Test 12/04/17 14:10 12/05/17 03:50 12/05/17 03:56 12/06/17 03:00 Monocytes (%) (Auto) 9.6 % (0.0-8.0) 9.2 % (0.0-8.0) Eosinophils (%) (Auto) 4.2 % (0.0-4.0) 5.2 % (0.0-4.0) White Blood Count 3.8 TH/MM3 (4.0-11.0) Platelet Count 137 TH/MM3 (150-450) Blood Urea Nitrogen 19 MG/DL (7-18) Chloride Level 112 MEQ/L (98-107) Estimat Glomerular Filtration Rate 70 ML/MIN (>89) Total Protein 6.1 GM/DL (6.4-8.2) Imaging Last Impressions Upper Extremity Ultrasound 12/04/17 0000 Signed Impressions: CONCLUSION: 1. Negative ultrasound study with no focal abnormality identified. PE at Discharge GENERAL: This is a well-nourished, well-developed patient, in no apparent distress. SKIN: Swelling redness around the base of the left index CARDIOVASCULAR: Regular rate and rhythm without murmurs, gallops, or rubs. RESPIRATORY: Fair air entry bilaterally. No wheezes, rales, or rhonchi. GASTROINTESTINAL: Abdomen soft, non-tender, nondistended. Positive bowel sounds MUSCULOSKELETAL: Extremities without clubbing, cyanosis, or edema. Pedal pulses appreciated NEUROLOGICAL: Awake and alert. Moves all extremity. Normal speech.no focal neurological deficit Hospital Course 57yF presented with insect bite to left index finger with erythema and swelling failed outpatient oral antibiotics, started on IV Abx Left index cellulitis rule out abscess/flexor tenosynovitis Patient failed outpatient therapy with clindamycin On vancomycin IV. Switch to doxycycline by mouth at discharge Ultrasound negative for fluid collection. Seen by Dr Bonilla hand surgeon , appreciate recommendations, no indication for surgical intervention. The patient is improving. Blood cultures negative to date Appreciate ID input Monitor clinically for improvement Patient improved significantly. Spoke with infectious disease specialist Dr Driscoll. Recommends doxycycline 100 mg p.o. twice daily for total of 14 days. The patient is instructed to use sunscreen or and avoid sun exposure while taking doxycycline. Patient is also cleared by hand specialist to follow-up as outpatient with PCP, and surgeon and infectious disease Dr. Grove as outpatient.. Patient improved significantly. Discharge home in stable condition to follow- up as outpatient with PCP and consultants. Pt Condition on Discharge: Good Discharge Disposition: Discharge Home Discharge Time: > 30 minutes Discharge Instructions DIET: Follow Instructions for: Heart Healthy Diet Activities you can perform: Regular-No Restrictions Follow up Referrals: Hand Surgery - 1 Week with Chelsie Bonilla MD Infectious Disease - 1 Week with Genevieve Grove MD PCP Follow-up - 2-3 Days New Medications: Doxycycline Hyclate (Doxycycline Hyclate) 100 Mg Cap 100 MG PO BID for Infection, #28 CAP 0 Refills use sunscreen and avoid sun exposure while taking doxycicline Discontinued Medications: Clindamycin (Clindamycin) 300 Mg Cap 300 MG PO Q6H for Infection, CAP 0 Refills Jessie Barros MD Dec 06, 2017 16:51
--- NOTE | 2017-12-06 17:54 | PD.ORT.PN ---
Subjective Subjective Remarks Patient reports significant improvement in pain, swelling, and erythema since yesterday. Reports hand almost normal at this point. Objective Vitals Vital Signs Date Time Temp Pulse Resp B/P (MAP) Pulse Ox O2 Delivery O2 Flow Rate FiO2 12/06/17 12:00 97.7 55 16 114/53 (73) 98 12/06/17 08:00 98.2 56 16 98/53 (68) 99 12/06/17 00:00 97.7 54 16 96/50 (65) 97 12/05/17 20:00 97.9 60 16 112/56 (74) 98 I/O 12/05/17 12/05/17 12/05/17 12/06/17 12/06/17 12/06/17 07:00 15:00 23:00 07:00 15:00 23:00 Intake Total 240 ml 480 ml 250 ml 100 ml Balance 240 ml 480 ml 250 ml 100 ml Intake Oral 240 ml 480 ml IV Total 250 ml 100 ml # Voids 1 2 # Bowel Movements 0 1 Result Diagram: 12/05/17 0350 12/05/17 0350 Objective Remarks No erythema over left hand and index finger, no fluctuance function intact fdp/ fds, sitlt radial and ulnar sides, <2 sec capillary refill Assessment & Plan Assessment and Plan [id number] insect bite to left index finger with erythema and swelling failed outpatient oral antibiotics but improving on IV Ab -Ultrasound negative for fluid collection, no indication for surgical intervention at this time. Will continue to follow closely on IV Ab. -Discussed with alfredo AKERS to d/c from hand surgery on oral antibiotics with followup with Dr Amos this week Chelsie Bonilla MD Dec 06, 2017 17:54
[2017-12-08] MEDS ORDERED: PHARMACY ORDERED LAB ONE (02:45)
== END 2017-12-06 17:26 | disposition home or self-care (01) ==
LOC: NEPE 13:24 → INTOOBSV 15:29 → NEDA 15:29 → N07B 18:04
PROVIDERS: ADMIT Hospitalist; ATTEND Hospitalist
DX: L03.114 Cellulitis of left upper limb (principal); S60.461A Insect bite (nonvenomous) of left index finger, initial encounter; M65.9 Synovitis and tenosynovitis, unspecified; D72.819 Decreased white blood cell count, unspecified; D69.6 Thrombocytopenia, unspecified; W57.XXXA Bitten or stung by nonvenomous insect and other nonvenomous arthropods, initial encounter
CPT/HCPCS: 76882; 80048; 80076; 80202; 82948; 85025; 86140; 87040; 96365; 96366; 96372; 96375; 96376; 99285; G0378; J1200; J1644; J1885; J2270; J3370; J7050; 96374